=== PATIENT | female | born 1960 | race Caucasian/White ===

== ENCOUNTER 2021-08-16 17:21 | Emergency (ER) | payer SELFPAY ==
--- NOTE | 2021-08-16 18:33 | ER ---
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 jb4 I was seen at an urgent care and given B/p medication and it ran out on Tuesday. I have not been able to see a PCP. Coronavirus screen: At this time, the client does not indicate any symptoms associated with coronavirus-19. Ebola Screen: No symptoms or risks identified at this time. Initial Sepsis Screen: Does the patient meet any 2 criteria? No. Patient's initial sepsis screen is negative. Does the patient have a suspected source of infection? No. Patient's initial sepsis screen is negative. Risk Assessment: Do you want to hurt yourself or someone else? Patient reports no desire to harm self or others. Onset of symptoms was August 16, 2021. Transition of care: patient was not received from another setting of care. 17:43 Method Of Arrival: Ambulatory jb4 17:43 Acuity: ZUHAIR 3 jb4 Historical: - Allergies: 17:52 No Known Allergies; jb4 - Home Meds: 17:52 azithromycin 250 mg Oral cap [Active]; Aspirin Oral [Active]; Guaifenesin DM 10-100 jb4 mg/5 mL Oral syrp [Active]; - PMHx: 17:52 HTN; Thyroid problem; jb4 - PSHx: 17:52 None; jb4 - Immunization history:: Adult Immunizations not up to date. - Social history:: Smoking status: Patient denies any tobacco usage or history of. Patient/guardian denies using alcohol. Screenin:00 Abuse screen: Denies threats or abuse. Nutritional screening: No deficits noted. aa5 Tuberculosis screening: No symptoms or risk factors identified. Fall Risk None identified. Assessment: 18:00 General: Appears comfortable, Behavior is calm, cooperative. Pain: Denies pain. Neuro: aa5 Level of Consciousness is awake, alert, obeys commands, Oriented to person, place, time, situation, Loss Prevention Supervisor are equal bilaterally Moves all extremities. Full function Gait is steady, Speech is normal, Facial symmetry appears normal. Cardiovascular: Heart tones S1 S2 present Patient's skin is warm and dry. Rhythm is regular. Respiratory: Airway is patent Respiratory effort is even, unlabored, Respiratory pattern is regular, symmetrical. GI: No signs and/or symptoms were reported involving the gastrointestinal system. : No signs and/or symptoms were reported regarding the genitourinary system. EENT: No signs and/or symptoms were reported regarding the EENT system. Derm: Skin is pink, warm \T\ dry. Musculoskeletal: Range of motion: intact in all extremities. 18:47 Reassessment: Patient is alert, oriented x 3, equal unlabored respirations, skin aa5 warm/dry/pink. Vital Signs: 17:43 BP 172 / 97; Pulse 82; Resp 16; Temp 98.2(O); Pulse Ox 100% on R/A; Weight 90.26 kg jb4 (R); Height 5 ft. 6 in. (167.64 cm) (R); Pain 0/10; 17:43 Body Mass Index 32.12 (90.26 kg, 167.64 cm) jb4 ED Course: 17:21 Patient arrived in ED. as 17:52 Triage completed. jb4 17:52 Arm band placed on right wrist. jb4 17:54 Higinio Johnson NP is PHCP. pm1 17:54 Maxim Wood MD is Attending Physician. pm1 18:00 Patient has correct armband on for positive identification. Bed in low position. Call aa5 light in reach. Side rails up X 1. Adult w/ patient. 18:06 Becky Smyth, RN is Primary Nurse. aa5 18:47 No provider procedures requiring assistance completed. Patient did not have IV access aa5 during this emergency room visit. Administered Medications: 18:47 Drug: Lisinopril 10 mg Route: PO; aa5 18:47 Follow up: Response: Medication administered at discharge. aa5 Outcome: 18:32 Discharge ordered by . pm1 18:47 Discharged to home ambulatory, with family. aa5 18:47 Condition: stable 18:47 Discharge instructions given to patient, Instructed on discharge instructions, follow up and referral plans. medication usage, Demonstrated understanding of instructions, follow-up care, medications, Prescriptions given X 1. 18:48 Patient left the ED. aa5 Signatures: Niurka Marin Audri, RN RN aa5 Higinio Johnson, ARNOLD VOCATIONAL TRAINING INSTRUCTOR pm1 Jeremiah Helton RN RN jb4
--- NOTE | 2021-08-16 18:33 | EDPHYS ---
Physician Documentation [facility] Name: Nany Beasley Age: 60 yrs Sex: Female : 1960 Arrival Date: 08/16/2021 Time: 17:21 Bed 7 Private MD: ED Physician Maxim Wood HPI: 08/16 18:31 This 60 yrs old Female presents to ER via Ambulatory with complaints of High Blood pm1 Pressure. 18:31 The patient has elevated blood pressure and discovered this at home, with a home pm1 device. Onset: The symptoms/episode began/occurred today. Modifying factors: The symptoms are aggravated by discontinuation of meds, Patient ran out of her lisinopril for the past few days. Patient has not been able to follow-up with a primary care provider for continuation of her hypertension medications that were prescribed in the ER setting. Patient was prescribed lisinopril until milligrams. During the 20 days that she was taking the medication her blood pressure was within goal ranges. Associated signs and symptoms: Pertinent positives: headache, Earlier today that has markedly improved. Severity of symptoms: in the emergency department the blood pressure is improved. The patient has not recently seen a physician. Historical: - Allergies: 17:52 No Known Allergies; jb4 - Home Meds: 17:52 azithromycin 250 mg Oral cap [Active]; Aspirin Oral [Active]; Guaifenesin DM 10-100 jb4 mg/5 mL Oral syrp [Active]; - PMHx: 17:52 HTN; Thyroid problem; jb4 - PSHx: 17:52 None; jb4 - Immunization history:: Adult Immunizations not up to date. - Social history:: Smoking status: Patient denies any tobacco usage or history of. Patient/guardian denies using alcohol. ROS: 18:31 Constitutional: Negative for fever, chills, and weight loss, Cardiovascular: Negative pm1 for chest pain, palpitations, and edema. 18:31 Abdomen/GI: Negative for abdominal pain, nausea, vomiting, diarrhea, and constipation, Back: Negative for injury and pain, MS/Extremity: Negative for injury and deformity, Skin: Negative for injury, rash, and discoloration. 18:31 Respiratory: Positive for cough, 5 weeks. 18:31 Neuro: Positive for headache, of the forehead, Negative for dizziness, numbness, weakness. 18:31 All other systems are negative. Exam: 18:31 Constitutional: This is a well developed, well nourished patient who is awake, alert, pm1 and in no acute distress. Head/Face: Normocephalic, atraumatic. 18:31 Skin: Warm, dry with normal turgor. Normal color with no rashes, no lesions, and no evidence of cellulitis. MS/ Extremity: Pulses equal, no cyanosis. Neurovascular intact. Full, normal range of motion. 18:31 Eyes: Exam is negative for acute changes, Periorbital structures: appear normal, Pupils: no acute changes, Conjunctiva: no acute changes, no injection, Sclera: no acute changes, icterus, is not appreciated. 18:31 ENT: Exam is negative for acute changes, Mouth: no acute changes, Lips: normal, moist, Oral mucosa: normal, pink and intact, moist. 18:31 Cardiovascular: Exam negative for acute changes, Rate: normal, Rhythm: regular, Pulses: no pulse deficits are appreciated, Heart sounds: normal, normal S1and S2, Edema: is not appreciated. 18:31 Respiratory: Exam negative for acute changes, respiratory distress, shortness of breath, Breath sounds: are clear throughout. 18:31 Abdomen/GI: Inspection: abdomen appears normal, Palpation: abdomen is soft and non-tender, in all quadrants. 18:31 Neuro: Orientation: is normal, Mentation: is normal, Cranial nerves: CN II- XII are normal as tested, Cerebellar function: normal finger to nose testing, Motor: no acute changes, moves all fours, strength is 5/5 in all extremities, Sensation: no obvious gross deficits. Vital Signs: 17:43 BP 172 / 97; Pulse 82; Resp 16; Temp 98.2(O); Pulse Ox 100% on R/A; Weight 90.26 kg jb4 (R); Height 5 ft. 6 in. (167.64 cm) (R); Pain 0/10; 17:43 Body Mass Index 32.12 (90.26 kg, 167.64 cm) jb4 MDM: 18:08 Patient medically screened. pm1 18:31 Data reviewed: vital signs. Data interpreted: Pulse oximetry: on room air is 100 %. pm1 Interpretation: normal. 18:31 Counseling: I had a detailed discussion with the patient and/or guardian regarding: the pm1 historical points, exam findings, and any diagnostic results supporting the discharge/admit diagnosis, the need for outpatient follow up, for definitive care, a family practitioner, to return to the emergency department if symptoms worsen or persist or if there are any questions or concerns that arise at home. 18:31 Special discussion: I have referred the patient to see his PCP for further evaluation pm1 of high blood pressure. 18:31 ED course: Patient already CT head and chest x-ray for reassurance of her complaints. pm1 Patient refused. Administered Medications: 18:47 Drug: Lisinopril 10 mg Route: PO; aa5 18:47 Follow up: Response: Medication administered at discharge. aa5 Disposition Summary: 08/16/21 18:32 Discharge Ordered Location: Home pm1 Problem: new pm1 Symptoms: have improved pm1 Condition: Stable pm1 Diagnosis - Essential (primary) hypertension pm1 Followup: pm1 - With: Emergency Department - When: As needed - Reason: Worsening of condition Followup: pm1 - With: Private Physician - When: 2 - 3 days - Reason: Recheck today's complaints, Continuance of care, Re-evaluation by your physician Discharge Instructions: - Discharge Summary Sheet pm1 - Hypertension, Adult pm1 - How to Take Your Blood Pressure, [id number] pm1 - DASH Eating Plan pm1 - Managing Your Hypertension pm1 Forms: - Medication Reconciliation Form pm1 - Thank You Letter pm1 - Antibiotic Education pm1 - Prescription Opioid Use pm1 Prescriptions: - Lisinopril 10 mg Oral Tablet - take 1 tablet by ORAL route once daily; 30 tablet; Refills: 0, Product pm1 Selection Permitted Signatures: Becky Smyth, RN RN aa5 Higinio Johnson NP [employer]GAN PIPE MAKER [employer]AL pm1 Jeremiah Helton, RN RN jb4
[2021-08-16] MEDS ORDERED: lisinopriL 10 MG TAB ONE (18:48)
[2021-08-16 18:51] VITALS: BP 172/97; TEMP 98.2; O2SAT 100
== END 2021-08-16 18:48 | disposition home or self-care (01) ==
LOC: ER 17:21
DX: I10 Essential (primary) hypertension (principal); R05.9 Cough, unspecified; R51.9 Headache, unspecified; E07.9 Disorder of thyroid, unspecified; Z79.82 Long term (current) use of aspirin
CPT/HCPCS: 99283

== ENCOUNTER 2021-08-28 18:37 | Inpatient (IN) | payer SELFPAY ==
--- NOTE | 2021-08-28 19:46 | RAD REPORT ---
EXAM DESCRIPTION: CT - Head Brain Wo Cont - 08/28/2021 7:37 pm CLINICAL HISTORY: Neuro deficit, acute, stroke suspected COMPARISON: No comparisons TECHNIQUE: All CT scans are performed using dose optimization technique as appropriate and may inclu de automated exposure control or mA/KV adjustment according to patient size. FINDINGS: No intracranial hemorrhage, hydrocephalus or extra-axial fluid collection.No areas of brai n edema or evidence of midline shift. The paranasal sinuses and mastoids are clear. The calvarium is intact. IMPRESSION: No acute intracranial abnormality.
[2021-08-28 20:10] LABS: Absolute Lymphocytes (CBC) 1.8 K/uL (0.7-4.9); Hematocrit 39.4 % (36.0-45.0); Lymphocytes % 22.3 % (15.3-44.8); MPV 7.4 fL (7.6-11.3); RBC Red Blood Cell Count 4.58 M/uL (3.86-4.86)
--- NOTE | 2021-08-28 20:14 | RAD REPORT ---
EXAM DESCRIPTION: RAD - Chest Single View - 08/28/2021 8:03 pm CLINICAL HISTORY: weakness COMPARISON: No comparisons FINDINGS: Lines: None. Lungs: No evidence of edema or pneumonia. Pleural: No significant pleural effusions or pneumothorax. Cardiac: The heart size is within normal limits. Bones: No acute fractures. Other: IMPRESSION: No acute cardiopulmonary disease.
[2021-08-28 20:20] LABS: Protime INR 1.04
[2021-08-28 20:22] LABS: Phosphorus 2.6 mg/dL (2.5-4.9); Troponin High Sensitivity 5.7 pg/mL (<58.9)
--- NOTE | 2021-08-28 20:43 | RAD REPORT ---
EXAM DESCRIPTION: CT - Head angio - 08/28/2021 8:36 pm CLINICAL HISTORY: Neuro deficit, acute, stroke suspected COMPARISON: <Comparisons> TECHNIQUE: CT angiography of the head was performed with MIPs. All CT scans are performed using dose optimization technique as appropriate and may include automated exposure control or mA/KV adjustment according to patient size. FINDINGS: Anterior circulation: No aneurysm or large vessel occlusion. No hemodynamically significant stenosis. No arteriovenous malf ormation identified. Posterior circulation: No aneurysm or large vessel occlusion. No hemodynamically significant stenosis. No arteriovenous malf ormation identified. Left dominant vertebral artery. IMPRESSION: No significant flow abnormality is detected.
--- NOTE | 2021-08-28 20:47 | RAD REPORT ---
EXAM DESCRIPTION: CT - Neck Angio - 08/28/2021 8:36 pm CLINICAL HISTORY: Neuro deficit, acute, stroke suspected COMPARISON: Head Brain Wo Cont dated 08/28/2021No comparisons TECHNIQUE: CT angiography of the neck vessels was performed with MIPs. All CT scans are performed using dose optimization technique as appropriate and may include automated exposure control or mA/KV adjustment according to patient size. FINDINGS: A left aortic arch is identified with normal three vessel configuration of the great vesse ls. No significant flow abnormality is seen of the common carotid bilaterally. No significant stenosis is identified involving the cervical segments of both internal carotid arteri es. Normal flow is seen within both vertebral arteries. Left dominant vertebral artery. Calcified plaque is present at both internal carotid arteries. Less than 50% stenosis at both carotid bulbs. . IMPRESSION: No significant flow abnormality of the neck vessels is identified.
[2021-08-28 21:07] LABS: Urine Blood Trace-intact (Negative); Urine Glucose Negative (Negative); Urine Protein Negative (Negative)
[2021-08-28] MEDS ORDERED: NA CHLORIDE 0.9% 1,000 ML ONE (21:10)
--- NOTE | 2021-08-28 21:26 | ER ---
Nurse's Notes [facility] Name: Nany Beasley Age: 60 yrs Sex: Female : 1960 Arrival Date: 08/28/2021 Time: 18:39 Bed 19 Private MD: Diagnosis: Hypo-osmolality and hyponatremia;Paresthesia;Dizziness and giddiness Presentation: 08/28 18:45 Chief complaint: Patient states: left arm numbness and tingling started about 5 pm iw denies weakness in arm, reports numbness to forehead earlier today but that has resolved , increased her BP medicine today, takes valsartan 160. Coronavirus screen: At this time, the client does not indicate any symptoms associated with coronavirus-19. Ebola Screen: Patient negative for fever greater than or equal to 101.5 degrees Fahrenheit, and additional compatible Ebola Virus Disease symptoms Patient denies exposure to infectious person. Patient denies travel to an Ebola-affected area in the 21 days before illness onset. No symptoms or risks identified at this time. Initial Sepsis Screen: Does the patient meet any 2 criteria? No. Patient's initial sepsis screen is negative. Does the patient have a suspected source of infection? No. Patient's initial sepsis screen is negative. Risk Assessment: Do you want to hurt yourself or someone else? Patient reports no desire to harm self or others. Onset of symptoms was August 28, 2021. 18:45 Method Of Arrival: Ambulatory iw 18:45 Acuity: ZUHAIR 2 iw Triage Assessment: 19:00 General: Appears in no apparent distress. comfortable, Behavior is calm, cooperative, vc1 appropriate for age. Pain: Denies pain. EENT: Patient wears glasses. Neuro: Level of Consciousness is awake, alert, obeys commands, Oriented to person, place, time, situation, Appropriate for age Cardiac Catheterization Technologist are equal bilaterally Moves all extremities. Gait is steady, Speech is normal, Facial symmetry appears normal. Cardiovascular: Capillary refill < 3 seconds Patient's skin is warm and dry. Respiratory: Airway is patent Respiratory effort is even, unlabored, Respiratory pattern is regular, symmetrical. GI: No deficits noted. : Urine is cloudy. Derm: No deficits noted. Musculoskeletal: No deficits noted. Historical: - Home Meds: 18:47 Aspirin Oral [Active]; azithromycin 250 mg Oral cap [Active]; Guaifenesin DM 10-100 iw mg/5 mL Oral syrp [Active]; - PMHx: 18:47 HTN; Thyroid problem; iw - Immunization history:: Adult Immunizations up to date. - Social history:: Smoking status: Patient denies any tobacco usage or history of. Screenin:00 Abuse screen: Denies threats or abuse. Nutritional screening: No deficits noted. vc1 Tuberculosis screening: No symptoms or risk factors identified. Fall Risk None identified. 20:00 VAN Screening: Arm Drift: Patient shows no arm weakness. Patient is VAN negative. vc1 Patient has been NPO before screening. The patient is alert, able to follow commands. The patient does not exhibit slurred or garbled speech The patient is not exhibiting difficulty speaking. The patient does not exhibit difficulty understanding words. The patient is able to swallow own secretions with no drooling or need for suction. Patient tolerated one teaspoon of water. No drooling, immediate coughing, gurgling, or clearing of the throat was noted. The patient tolerated 90mL of water. No drooling, immediate coughing, gurgling, or clearing of the throat was noted. The patient passed the bedside swallow screening. Oral medications may be given as ordered. Contact Physician for further diet orders. Assessment: 20:00 Reassessment: Patient and/or family updated on plan of care and expected duration. Pain vc1 level reassessed. Patient is alert, oriented x 3, equal unlabored respirations, skin warm/dry/pink. Patient denies pain at this time. Patient states feeling better. Patient states symptoms have improved. 21:00 Reassessment: No changes from previously documented assessment. Patient and/or family vc1 updated on plan of care and expected duration. Pain level reassessed. 22:00 Reassessment: No changes from previously documented assessment. Patient and/or family vc1 updated on plan of care and expected duration. Pain level reassessed. Patient denies pain at this time. 23:00 Reassessment: No changes from previously documented assessment. Patient and/or family vc1 updated on plan of care and expected duration. Pain level reassessed. Patient is alert, oriented x 3, equal unlabored respirations, skin warm/dry/pink. Patient denies pain at this time. Vital Signs: 18:45 BP 147 / 85; Pulse 80; Resp 16; Temp 98.2; Pulse Ox 100% on R/A; iw 21:00 BP 148 / 83; Pulse 68; Resp 15; Pulse Ox 100% ; Pain 0/10; vc1 23:00 BP 149 / 80; Pulse 69; Resp 16; Pulse Ox 100% on R/A; Pain 0/10; vc1 NIH Stroke Scale Scores: 19:15 NIHSS Score: 0 vc1 ED Course: 18:39 Patient arrived in ED. am2 18:47 Triage completed. iw 18:48 Arm band placed on. iw 19:03 Lj Juarez MD is Attending Physician. mh7 19:10 Angie Chakraborty, DAMARIS is Primary Nurse. vc1 19:15 Patient has correct armband on for positive identification. Client placed on continuous vc1 cardiac and pulse oximetry monitoring. NIBP monitoring applied. 19:15 Inserted saline lock: 22 gauge in right forearm, using aseptic technique. vc1 19:39 Head Brain Wo Cont In Process Unspecified. EDMS 20:05 Stroke CXR 1 View In Process Unspecified. EDMS 20:37 CT Head Angio In Process Unspecified. EDMS 20:37 CT Neck Angio In Process Unspecified. EDMS 21:24 Felix Ramirez MD is Hospitalizing Provider. [facility] 23:37 No provider procedures requiring assistance completed. Patient admitted, IV remains in vc1 place. Administered Medications: 21:21 Drug: NS 0.9% 1000 ml Route: IV; Rate: 1000 ml; Site: right forearm; vc1 22:22 Follow up: IV Status: Completed infusion; IV Intake: 1000ml vc1 Medication: 23:40 VIS not applicable for this client. vc1 Intake: 22:22 IV: 1000ml; Total: 1000ml. vc1 Outcome: 21:25 Decision to Hospitalize by Provider. mh7 23:38 Admitted to Med/surg accompanied by tech, via wheelchair, room 402, Report called to [facility] Earlene 23:38 Condition: improved 23:38 Instructed on the need for admit. 23:40 Patient left the ED. vc1 NIH Stroke Scale - NIH Stroke Score Date: 08/28/2021 Time: 19:15 Total Score = 0 1a. Level of Consciousness (LOC) - 0(Alert) 1b. Level of Consciousness (LOC) (Month \T\ Age) - 0(Both) 1c. LOC Commands (Open \T\ Closes Eyes/Electrical Appliance Repairer) - 0(Both) 2. Best Gaze (Lateral Gaze Paresis) - 0(Normal) 3. Visual Field Loss - 0(No visual loss) 4. Facial Palsy - 0(Normal) 5a. Left Arm: Motor (10-second hold) - 0(No drift) 5b. Right Arm: Motor (10-second hold) - 0(No drift) 6a. Left Leg: Motor (5-second hold - always test supine) - 0(No drift) 6b. Right Leg: Motor (5-second hold - always test supine) - 0(No drift) 7. Limb Ataxia (finger/nose \T\ heel/sexton - test with eyes open) - 0(Absent) 8. Sensory Loss (pinprick arms/legs/face) - 0(Normal) 9. Best Language: Aphasia (description/naming/reading) - 0(No aphasia) 10. Dysarthria (speech clarity - read or repeat words) - 0(Normal) 11. Extinction and Inattention (visual/tactile/auditory/spatial/personal) - 0(No abnormality) Initials: vc1 Signatures: Dispatcher [employer] EDHerlinda Collins, DAMARIS OCAMPO iw Virginia Villanueva am2 Lj Juarez MD MD 7 Angie Chakraborty RN RN vc1
--- NOTE | 2021-08-28 21:26 | EDPHYS ---
Physician Documentation [facility] Name: Nany Beasley Age: 60 yrs Sex: Female : 1960 Arrival Date: 08/28/2021 Time: 18:39 Bed 19 Private MD: ED Physician Lj Juarez HPI: 08/28 19:10 This 60 yrs old Female presents to ER via Ambulatory with complaints of Numbness Of Arm mh7 - right, Numbness Of Hand - left. 19:10 The patient's problem is reported as paresthesias, in left upper extremity. Onset: The mh7 symptoms/episode began/occurred today, at 17:00. 19:10 Duration: The episodes are intermittent. 7 19:10 Context: the episode(s) was witnessed, by no one, symptoms became apparent on August 28, [facility] 2021, occurred at home, occurred while the patient was sitting, Possible contributing factors include:. The symptoms are alleviated by nothing. The symptoms are aggravated by nothing. Associated signs and symptoms: Pertinent positives: dizziness, Pertinent negatives: abdominal pain, agitation, ataxia, blurred vision, chest pain, combativeness, diaphoresis, diarrhea, headache, nausea, palpitations, seizure, shortness of breath, vertigo, vomiting, weakness. Severity of symptoms: At their worst the symptoms were moderate today, in the emergency department the symptoms have improved markedly. Patient reports having dizziness this morning \\T\\ 11:00 am and some numbness to forehead area. states that she appeared to be shaky at that time. This evening she started having numbness/tingling to her left forearm. She states that her blood pressure was 200 systolic this morning and her doctor advised her to take an increased dose of her hypertension medication.. Historical: - Home Meds: 18:47 Aspirin Oral [Active]; azithromycin 250 mg Oral cap [Active]; Guaifenesin DM 10-100 iw mg/5 mL Oral syrp [Active]; - PMHx: 18:47 HTN; Thyroid problem; iw - Immunization history:: Adult Immunizations up to date. - Social history:: Smoking status: Patient denies any tobacco usage or history of. ROS: 19:10 Constitutional: Negative for fever, chills, and weight loss, Eyes: Negative for injury, mh7 pain, redness, and discharge, ENT: Negative for injury, pain, and discharge, Neck: Negative for injury, pain, and swelling, Cardiovascular: Negative for chest pain, palpitations, and edema, Respiratory: Negative for shortness of breath, cough, wheezing, and pleuritic chest pain, Abdomen/GI: Negative for abdominal pain, nausea, vomiting, diarrhea, and constipation, Back: Negative for injury and pain, : Negative for injury, bleeding, discharge, and swelling, MS/Extremity: Negative for injury and deformity, Skin: Negative for injury, rash, and discoloration, Neuro: Negative for headache, weakness, numbness, tingling, and seizure. 19:10 Psych: Negative for depression, anxiety, suicide ideation, homicidal ideation, and mh7 hallucinations, Allergy/Immunology: Negative for hives, rash, and allergies, Endocrine: Negative for neck swelling, polydipsia, polyuria, polyphagia, and marked weight changes, Hematologic/Lymphatic: Negative for swollen nodes, abnormal bleeding, and unusual bruising. 19:10 Neuro: Positive for dizziness. Exam: 19:10 Constitutional: This is a well developed, well nourished patient who is awake, alert, mh7 and in no acute distress. Head/Face: Normocephalic, atraumatic. Eyes: Pupils equal round and reactive to light, extra-ocular motions intact. Lids and lashes normal. Conjunctiva and sclera are non-icteric and not injected. Cornea within normal limits. Periorbital areas with no swelling, redness, or edema. Neck: Trachea midline, no thyromegaly or masses palpated, and no cervical lymphadenopathy. Supple, full range of motion without nuchal rigidity, or vertebral point tenderness. No Meningismus. Chest/axilla: Normal chest wall appearance and motion. Nontender with no deformity. No lesions are appreciated. Cardiovascular: Regular rate and rhythm with a normal S1 and S2. No gallops, murmurs, or rubs. Normal PMI, no JVD. No pulse deficits. Respiratory: Lungs have equal breath sounds bilaterally, clear to auscultation and percussion. No rales, rhonchi or wheezes noted. No increased work of breathing, no retractions or nasal flaring. Abdomen/GI: Soft, non-tender, with normal bowel sounds. No distension or tympany. No guarding or rebound. No evidence of tenderness throughout. Back: No spinal tenderness. No costovertebral tenderness. Full range of motion. Skin: Warm, dry with normal turgor. Normal color with no rashes, no lesions, and no evidence of cellulitis. MS/ Extremity: Pulses equal, no cyanosis. Neurovascular intact. Full, normal range of motion. 19:10 Psych: Awake, alert, with orientation to person, place and time. Behavior, mood, and affect are within normal limits. 19:10 Neuro: Orientation: is normal, Mentation: is normal, Memory: is normal, Cranial nerves: grossly normal, Cerebellar function: is grossly normal, Motor: is normal, Sensation: is normal, Gait: not tested. seizure activity, is not displayed by the patient, Abnormal movements: there are no abnormal movements. 20:10 Radiologist reports: no acute intracranial findings [facility] Vital Signs: 18:45 BP 147 / 85; Pulse 80; Resp 16; Temp 98.2; Pulse Ox 100% on R/A; iw 21:00 BP 148 / 83; Pulse 68; Resp 15; Pulse Ox 100% ; Pain 0/10; vc1 23:00 BP 149 / 80; Pulse 69; Resp 16; Pulse Ox 100% on R/A; Pain 0/10; vc1 NIH Stroke Scale Scores: 19:15 NIHSS Score: 0 vc1 MDM: 21:18 Differential diagnosis: CVA, TIA, metabolic disorder, drug effects. Data reviewed: [facility] vital signs, nurses notes, lab test result(s), cardiac enzymes, CBC, electrolytes, radiologic studies, CT scan, plain films. Data interpreted: Pulse oximetry: on room air is 100 %. Interpretation: normal. Counseling: I had a detailed discussion with the patient and/or guardian regarding: the historical points, exam findings, and any diagnostic results supporting the discharge/admit diagnosis, the presence of at least one elevated blood pressure reading (>120/80) during this emergency department visit, lab results, radiology results, the need for further work-up and treatment in the hospital. Response to treatment: the patient's symptoms have markedly improved after treatment. Physician consultation: Bhanu Velez MD was contacted at 20:20, regarding patient's condition, Symptoms started around 11:00 am, and sodium low. Not a candidate for thrombolytics with symptoms starting greater than 4.5 hours before presentation. Also, suspect symptoms could be related to hyponatremia.. 21:25 Patient medically screened. [facility] 08/28 18:58 Order name: Basic Metabolic Panel; Complete Time: 20:29 [facility] 08/28 18:58 Order name: CBC with Diff; Complete Time: 20:14 [facility] 08/28 18:58 Order name: Protime (+inr); Complete Time: 20:29 [facility] 08/28 18:58 Order name: Ptt, Activated; Complete Time: 20:29 [facility] 08/28 19:37 Order name: COVID-19 SARS RT PCR (Document "Date of Onset" if Symptomatic) [facility] 08/28 20:06 Order name: Phosphorus; Complete Time: 20:29 [facility] 08/28 20:06 Order name: Troponin High Sensitivity; Complete Time: 20:29 [facility] 08/28 20:06 Order name: Magnesium; Complete Time: 20:29 [facility] 08/28 21:04 Order name: Urine Microscopic Only [facility] 08/28 21:04 Order name: Urine Culture [facility] 08/28 21:08 Order name: Urine Dipstick-Ancillary [facility] 08/28 18:58 Order name: Stroke CXR 1 View; Complete Time: 20:29 [facility] 08/28 18:58 Order name: EKG; Complete Time: 18:59 [facility] 08/28 18:58 Order name: Accucheck; Complete Time: 21:22 [facility] 08/28 18:58 Order name: Cardiac monitoring; Complete Time: 21:22 [facility] 08/28 18:58 Order name: EKG - Nurse/Tech; Complete Time: 21:22 [facility] 08/28 18:58 Order name: IV Saline Lock; Complete Time: 19:45 [facility] 08/28 19:02 Order name: CT Head Angio; Complete Time: 20:50 [facility] 08/28 19:02 Order name: CT Neck Angio; Complete Time: 20:50 [facility] 08/28 19:29 Order name: Head Brain Wo Cont; Complete Time: 20:10 [facility] 08/28 21:12 Order name: Glucose, Ancillary Testing [facility] 08/28 21:48 Order name: Osmolality, Serum la1 08/28 21:48 Order name: Urine Osmolality la1 08/28 21:48 Order name: Urine Sodium Random la1 08/28 21:48 Order name: Urine Potassium Random la1 08/28 18:58 Order name: Labs collected and sent; Complete Time: 19:45 [facility] 08/28 18:58 Order name: NPO; Complete Time: 21:22 [facility] 08/28 18:58 Order name: O2 Per Protocol; Complete Time: 21:22 [facility] 08/28 18:58 Order name: O2 Sat Monitoring; Complete Time: 21:22 [facility] 08/28 18:58 Order name: Stroke Swallow Screen; Complete Time: 21:58 [facility] 08/28 20:44 Order name: Urine Dipstick-Ancillary (obtain specimen); Complete Time: 21:22 [facility] Administered Medications: 21:21 Drug: NS 0.9% 1000 ml Route: IV; Rate: 1000 ml; Site: right forearm; vc1 22:22 Follow up: IV Status: Completed infusion; IV Intake: 1000ml vc1 Disposition Summary: 08/28/21 21:25 Hospitalization Ordered Hospitalization Status: Inpatient Admission [facility] Provider: Felix Ramirez Benito Location: Telemetry/[facility] (Inpatient) [facility] Condition: Stable [facility] Problem: new [facility] Symptoms: have improved [facility] Bed/Room Type: Standard [facility] Room Assignment: 402(08/28/21 22:57) Diagnosis - Hypo-osmolality and hyponatremia [facility] - Paresthesia [facility] - Dizziness and giddiness [facility] Forms: - Medication Reconciliation Form [facility] - SBAR form [facility] NIH Stroke Scale - NIH Stroke Score Date: 08/28/2021 Time: 19:15 Total Score = 0 1a. Level of Consciousness (LOC) - 0(Alert) 1b. Level of Consciousness (LOC) (Month \\T\\ Age) - 0(Both) 1c. LOC Commands (Open \\T\\ Closes Eyes/Animal Breeder) - 0(Both) 2. Best Gaze (Lateral Gaze Paresis) - 0(Normal) 3. Visual Field Loss - 0(No visual loss) 4. Facial Palsy - 0(Normal) 5a. Left Arm: Motor (10-second hold) - 0(No drift) 5b. Right Arm: Motor (10-second hold) - 0(No drift) 6a. Left Leg: Motor (5-second hold - always test supine) - 0(No drift) 6b. Right Leg: Motor (5-second hold - always test supine) - 0(No drift) 7. Limb Ataxia (finger/nose \\T\\ heel/sexton - test with eyes open) - 0(Absent) 8. Sensory Loss (pinprick arms/legs/face) - 0(Normal) 9. Best Language: Aphasia (description/naming/reading) - 0(No aphasia) 10. Dysarthria (speech clarity - read or repeat words) - 0(Normal) 11. Extinction and Inattention (visual/tactile/auditory/spatial/personal) - 0(No abnormality) Initials: vc1 Signatures: Dispatcher [employer] EDMS Jose Raul Kenney PA PA jmm Williams, Irene, RN RN iw Jose Luis Marquez, DE ICER-C DE ICER-Cla1 Ginna Carpenter, DAMARIS RN Lj Miranda MD MD 7 Angie Chakraborty RN RN vc1 Corrections: (The following items were deleted from the chart) 19:29 18:59 CT-STROKE BRAIN W/O CONTRAST+CT.RAD.BRZ ordered. EDMS EDMS 20:06 19:29 Troponin High Sensitivity+C.LAB.BRZ ordered. EDMS EDMS 20:06 19:29 MAGNESIUM+C.LAB.BRZ ordered. EDMS EDMS 20:06 19:29 PHOSPHORUS+C.LAB.BRZ ordered. EDMS EDMS 22:57 21:25 mh7
[2021-08-28 21:45] LABS: Urine Bacteria LOADED /HPF (<20); Urine RBC <5 /HPF (NONE SEEN)
--- NOTE | 2021-08-28 22:02 | P.HP ---
Certification for Inpatient Patient admitted to: Observation With expected LOS: <2 Midnights Patient will require the following post-hospital care: None Practitioner: I am a practitioner with admitting privileges, knowledge of patient current condition, hospital course, and medical plan of care. Services: Services provided to patient in accordance with Admission requirements found in Title 42 Section 412.3 of the Code of Federal Regulations Patient History Date of Service: 08/28/21 Reason for admission: Paresthesia, hyponatremia History of Present Illness: 60-year old female history of hypertension presents emergency room for left upper extremity paresthesia she reports her symptoms started around 1700 today denies any weakness or other focal neurological deficits just complaining of paresthesias from the hand up to about the elbow of the left arm. Patient was evaluated emergency department she had CT head without contrast as well as CT head and neck angiogram which were all negative for acute findings her chemistry was significant for mild hyponatremia with a sodium of 125 and a chloride 91 patient was given 1 L NS bolus in the ER, ED prior wishes to admit to observation for paresthesias, hyponatremia. Patient does admit to drinking between 5-10 bottles of water a day she was also on hydrochlorothiazide for few doses last week which could contribute to her hyponatremia. - Past Medical/Surgical History -: Hypertension -: None Psychosocial/ Personal History: Patient is unemployed, lives at home with her - Family History Family History: Reviewed- Non-Contributory - Social History Smoking Status: Never smoker Alcohol use: No CD- Drugs: No Caffeine use: Yes Place of Residence: Home Review of Systems 10-point ROS is otherwise unremarkable Respiratory: Cough, Dry Neurological: Numbness, As per HPI Physical Examination - Physical Exam General: Alert, In no apparent distress, Oriented x3 HEENT: Atraumatic, PERRLA, Mucous membr. moist/pink, EOMI, Sclerae nonicteric Neck: Supple, 2+ carotid pulse no bruit, No LAD, Without JVD or thyroid abnormality Respiratory: Clear to auscultation bilaterally, Normal air movement Cardiovascular: Regular rate/rhythm, Normal S1 S2 Gastrointestinal: Normal bowel sounds, No tenderness Musculoskeletal: No tenderness Integumentary: No rashes Neurological: Normal gait, Normal speech, Normal strength at 5/5 x4 extr, Normal tone, Sensation intact, Cranial nerves 3-12 intact, Normal affect Lymphatics: No axilla or inguinal lymphadenopathy - Studies Laboratory Data (last 24 hrs) 08/28/21 19:29: Phosphorus Cancelled, Magnesium Cancelled 08/28/21 19:25: PT 11.5, INR 1.04, APTT 31.5 08/28/21 19:25: WBC 8.2, Hgb 13.5, Hct 39.4, Plt Count 347 08/28/21 19:25: Sodium 125 L, Potassium 4.0, BUN 7, Creatinine 0.71, Glucose 113 H, Phosphorus 2.6, Magnesium 2.0 Assessment and Plan - Plan Assessment: Left upper extremity paresthesia hyponatremia Hypertension Plan: Left upper extremity paresthesia: CT head without, CT head neck angio negative for acute findings symptoms resolved at this time possible TIA versus metabolic disturbance with hyponatremia we will continue patient's aspirin add folic acid/statin obtain lipid panel neurology consult in place we will also be treating hyponatremia. hyponatremia: Given one liter NS in ED, recheck tonight around 0100. Possibly related to excess to intake and possible HCTZ use last week. Additional studies ordered. Will consult nephrology for worsening. Hypertension: continue home meds, avoid HCTZ DVT PPX: Lovenox Code status:full Discharge Plan: Home Plan to discharge in: 24 Hours - Advance Directives Does patient have a Living Will: No Does patient have a Durable POA for Healthcare: No - Code Status/Comfort Care Code Status Assessed: Yes (Full code) Critical Care: No Time Spent Managing Pts Care (In Minutes): 55
[2021-08-28] MEDS ORDERED: ACETAMINOPHEN 500 MG TAB PO PRN (23:29)
[2021-08-28] MEDS ORDERED: ONDANSETRON 4 MG/2 ML VIAL IV PRN (23:29)
[2021-08-28 23:47] VITALS: O2SAT 100
[2021-08-29 00:07] LABS: UR POTASSIUM < 6.0 mmol/L (20-40); UR SODIUM 25 mmol/L (27-287)
[2021-08-29 00:33] VITALS: BMI 30.7
[2021-08-29 01:29] LABS: Potassium 3.8 mmol/L (3.5-5.1)
[2021-08-29 05:07] LABS: Absolute Lymphocytes (CBC) 1.2 K/uL (0.7-4.9); Lymphocytes % 19.1 % (15.3-44.8); MPV 7.3 fL (7.6-11.3); RBC Red Blood Cell Count 4.37 M/uL (3.86-4.86)
[2021-08-29 05:26] LABS: Albumin 3.5 g/dL (3.4-5.0); Bilirubin Total 0.2 mg/dL (0.2-1.0); Potassium 4.3 mmol/L (3.5-5.1); Protein, Total 7.5 g/dL (6.4-8.2)
[2021-08-29 05:39] LABS: Thyroid Stimulating Hormone 5.67 uIU/mL (0.360-3.740)
[2021-08-29] MEDS ORDERED: FOLIC ACID 1 MG TABLET PO SCH (09:00)
[2021-08-29] MEDS ORDERED: ENOXAPARIN 40 MG/0.4 ML SQ SCH (09:00)
[2021-08-29] MEDS ORDERED: ASPIRIN EC 81 MG TAB PO SCH (09:00)
--- NOTE | 2021-08-29 10:32 | P.DS ---
Admission Date: 08/29/21 Discharge Date: 08/29/21 Disposition: ROUTINE DISCHARGE Discharge Condition: GOOD Reason for Admission: Paresthesia, hyponatremia Brief History of Present Illness: History of Present Illness: 60-year old female history of hypertension presents emergency room for left upper extremity paresthesia she reports her symptoms started around 1700 today denies any weakness or other focal neurological deficits just complaining of paresthesias from the hand up to about the elbow of the left arm. Patient was evaluated emergency department she had CT head without contrast as well as CT head and neck angiogram which were all negative for acute findings her chemistry was significant for mild hyponatremia with a sodium of 125 and a chloride 91 patient was given 1 L NS bolus in the ER, ED prior wishes to admit to observation for paresthesias, hyponatremia. Patient does admit to drinking between 5-10 bottles of water a day she was also on hydrochlorothiazide for few doses last week which could contribute to her hyponatremia. - Past Medical/Surgical History -: Hypertension -: None Hospital Course: Hospital course patient with history of hypertension previously on HCTZ presented because of left upper extremity paresthesia with numbness with associated fogginess of the head. On admission she was noted with serum sodium of 125. She will had a head CT as well as CTA head and neck which shows no abnormality. Her serum sodium improved with normal saline to 132. Normal saline was then discontinued. Patient was placed on fluid restriction. Her serum sodium further improved to 134. Patient is asymptomatic now since resolution of her numbness. She is ambu latory with no difficulty. She will be discharged home today to continue fluid restriction. General: Alert, In no apparent distress, Oriented x3 HEENT: Atraumatic, PERRLA, Mucous membr. moist/pink, EOMI, Sclerae nonicteric Neck: Supple, 2+ carotid pulse no bruit, No LAD, Without JVD or thyroid abnormality Respiratory: Clear to auscultation bilaterally, Normal air movement Cardiovascular: Regular rate/rhythm, Normal S1 S2 Gastrointestinal: Normal bowel sounds, No tenderness Musculoskeletal: No tenderness Integumentary: No rashes Neurological: Normal gait, Normal speech, Normal strength at 5/5 x4 extr, Normal tone, Sensation intact, Cranial nerves 3-12 intact, Normal affect Lymphatics: No axilla or inguinal lymphadenopathy Vital Signs/Physical Exam: Temp Pulse Resp BP Pulse Ox 97.4 F 68 16 117/68 100 08/29/21 07:55 08/29/21 07:55 08/29/21 07:55 08/29/21 07:55 08/29/21 07:55 General: Alert, In no apparent distress, Oriented x3 HEENT: Atraumatic, Normocephalic, PERRLA Neck: Supple, 2+ carotid pulse no bruit, JVD not distended Respiratory: Clear to auscultation bilaterally, Normal air movement Gastrointestinal: Normal bowel sounds, Soft and benign, Non-distended Musculoskeletal: No clubbing, No swelling Integumentary: No rashes, No breakdown, No significant lesion Laboratory Data at Discharge: WBC 6.3 K/uL (4.3-10.9) D 08/29/21 04:32 Hgb 13.0 g/dL (12.0-15.0) 08/29/21 04:32 Hct 38.0 % (36.0-45.0) 08/29/21 04:32 Plt Count 313 K/uL (152-406) 08/29/21 04:32 PT 11.5 SECONDS (9.5-12.5) 08/28/21 19:25 INR 1.04 08/28/21 19:25 APTT 31.5 SECONDS (24.3-36.9) 08/28/21 19:25 Sodium 134 mmol/L (136-145) L 08/29/21 04:32 Potassium 4.3 mmol/L (3.5-5.1) 08/29/21 04:32 BUN 6 mg/dL (7-18) L 08/29/21 04:32 Creatinine 0.65 mg/dL (0.55-1.3) 08/29/21 04:32 Glucose 93 mg/dL (74-106) 08/29/21 04:32 Phosphorus Cancelled 08/28/21 19:29 Magnesium Cancelled 08/28/21 19:29 Total Bilirubin 0.2 mg/dL (0.2-1.0) 08/29/21 04:32 AST 11 U/L (15-37) L 08/29/21 04:32 ALT 19 U/L (12-78) 08/29/21 04:32 Alkaline Phosphatase 147 U/L (45-117) H 08/29/21 04:32 Triglycerides 59 mg/dL (<150) 08/29/21 04:32 Cholesterol 188 mg/dL (<200) 08/29/21 04:32 HDL Cholesterol 57 mg/dL (40-60) 08/29/21 04:32 Cholesterol/HDL Ratio 3.30 08/29/21 04:32 Home Medications: Aspirin 81 mg PO DAILY 08/29/21 Calcium Carbonate/Mag Carb [Magnebind 400 Tablet] 1 each PO DAILY 08/29/21 Multivitamin [Daily Multivitamin] 1 each PO DAILY 08/29/21 Valsartan 80 mg PO BID 08/29/21 Physician Discharge Instructions: fluid restriction to less than 2 Liters per day Diet: Regular Activity: Ad jie Followup: Emerald Soto PAC [Primary Care Provider] - Time spent managing pt's care (in minutes): 35
[2021-08-29 11:33] VITALS: BP 113/61; TEMP 98.3
[2021-08-29] MEDS ORDERED: ATORVASTATIN 40 MG TAB PO SCH (21:00)
--- NOTE | 2021-09-01 12:25 | EKG ---
Test Date: 2021-08-28 Test Time: 21:11:49 Smash Hand: NORMAN MEASUREMENT RESULTS: Intervals: Rate: 73 NV: 184 QRSD: 72 QT: 404 QTc: 445 [place]: P: 53 NV: 184 QRS: -29 T: 24 INTERPRETIVE STATEMENTS: Normal sinus rhythm Minimal voltage criteria for LVH, may be normal variant Borderline ECG Compared to ECG 08/28/2021 21:10:18 Left ventricular hypertrophy now present Left-axis deviation no longer present Myocardial infarct finding no longer present Electronically Signed On 09-01-21 12:17:36 CDT by Elian Wallace
== END 2021-08-29 11:30 | disposition home or self-care (01) | DRG 92 ==
LOC: ER 18:37 → ERHOLD 22:57 → 4TH 23:16 → OBSVTOIN 08-29 09:12
PROVIDERS: ADMIT Internal Medicine; ATTEND Internal Medicine
DX: R20.2 Paresthesia of skin (principal); E87.1 Hypo-osmolality and hyponatremia; I10 Essential (primary) hypertension; Z20.822 Contact with and (suspected) exposure to COVID-19
CPT/HCPCS: 36415; 70450; 70496; 70498; 71045; 80048; 80053; 80061; 81003; 81015; 82947; 83735; 83930; 83935; 84100; 84132; 84300; 84439; 84443; 84484; 85025; 85610; 85730; 87077; 87086; 87088; 87186; 93005; 96360; 99285; G0378; J1650; J7030; Q9967; U0003